=== PATIENT | female | born 1955 | race Caucasian/White ===

== ENCOUNTER 2022-10-15 13:36 | Emergency (ER) | payer MEDICARE, OTHER ==
[~2022-10-15] VITALS: Ht 162.6 cm; Wt 88.5 kg
[~2022-10-15 13:36] MED LIST: CLEOCIN HCL300 MG PO; NEURONTIN300 MG PO
--- OUTSIDE RECORDS SUMMARY | 2022-10-15 13:40 | XMS ---
PreManage Notification: SUSAN GOLDMAN Security Vp Digital Marketing Events No recent Security Events currently on file CRITERIA MET - [facility] - 2 Visits in 30 Days CARE PROVIDERS ALEXYS PASTOR [facility] Current PHONE: [phone] En has no Care Guidelines for this patient. E.Guerda VISIT COUNT (12 MO.) 2 [facility] Katelynn Arenas [address] [place] [address] TOTAL 4 NOTE: Visits indicate total known visits. ED/UCC VISIT TRACKING (12 MO.) 10/15/2022 13:38 MONAE Durbin TYPE: Emergency COMPLAINT: - LEG PAIN 09/29/2022 06:54 MONAE Durbin TYPE: Emergency COMPLAINT: - R LEG SWOLLEN/PAIN DIAGNOSES: - Allergy status to other antibiotic agents - Allergy status to sulfonamides - Cellulitis of right lower limb - Pain in right leg - Polyneuropathy, unspecified 07/28/2022 05:24 [facility] Katelynn NAIDU TYPE: Emergency DIAGNOSES: - Cellulitis of right lower limb - Chronic venous hypertension (idiopathic) with ulcer and inflammation of right lower extremity - bilateral leg swelling - Leg Swelling 05/11/2022 01:28 [facility] Katelynn NAIDU TYPE: Emergency DIAGNOSES: - Cellulitis of right lower limb - Cellulitis - Right leg inflamed /burning INPATIENT VISIT TRACKING (12 MO.) No inpatient visits to display in this time frame [id number]
[2022-10-15] MEDS ORDERED: AMOXICILLIN500 MG PO (14:36)
[2022-10-15] MEDS ORDERED: ELIQUIS5 MG PO (14:37)
[2022-10-15] MEDS ORDERED: PREDNISONE10 MG PO (16:59)
[2022-10-15] MEDS ORDERED: NEURONTIN300 MG PO (16:59)
[2022-10-15 17:30] VITALS: BP 178/99
== END 2022-10-15 17:34 | disposition home or self-care (01) ==
LOC: ED 13:36
DX: I83.018 Varicose veins of right lower extremity with ulcer other part of lower leg (principal); L97.819 Non-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 unspecified severity; Z88.1 Allergy status to other antibiotic agents; Z88.2 Allergy status to sulfonamides; Z79.899 Other long term (current) drug therapy; Z79.01 Long term (current) use of anticoagulants
CPT/HCPCS: 99283

== ENCOUNTER 2022-10-26 09:43 | Emergency (ER) | payer MEDICARE, OTHER ==
[~2022-10-26] VITALS: Ht 162.6 cm; Wt 90.0 kg
[~2022-10-26 09:43] MED LIST changes: +AMOXICILLIN500 MG PO; +ELIQUIS5 MG PO; +PREDNISONE10 MG PO
--- OUTSIDE RECORDS SUMMARY | 2022-10-26 09:52 | XMS ---
PreManage Notification: SUSAN GOLDMAN Security Supervisor Pleating Events No recent Security Events currently on file CRITERIA MET - [facility] - 2 Visits in 30 Days CARE PROVIDERS ALEXYS PASTOR [facility] Current PHONE: [phone] En has no Care Guidelines for this patient. E.Guerda VISIT COUNT (12 MO.) 2 [facility] Katelynn Arenas [address] [place] [address] TOTAL 5 NOTE: Visits indicate total known visits. ED/UCC VISIT TRACKING (12 MO.) 10/26/2022 09:45 MONAE Duran [place] TYPE: Emergency COMPLAINT: - R LEG PAIN/SWELLING 10/15/2022 13:38 MONAE Duran [place] TYPE: Emergency COMPLAINT: - WOUND CHECK DIAGNOSES: - Allergy status to other antibiotic agents - Allergy status to sulfonamides - terminal system operator (current) use of anticoagulants - Non-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 unspecified severity - Other marine oil terminal superintendent (current) drug therapy - Unspecified open wound, right lower leg, initial encounter - Varicose veins of right lower extremity with ulcer other part of lower leg 09/29/2022 06:54 MONAE Duran [place] TYPE: Emergency COMPLAINT: - R LEG SWOLLEN/PAIN DIAGNOSES: - Allergy status to other antibiotic agents - Allergy status to sulfonamides - Cellulitis of right lower limb - Pain in right leg - Polyneuropathy, unspecified 07/28/2022 05:24 [facility] Jeison NAIDU TYPE: Emergency DIAGNOSES: - Cellulitis of right lower limb - Chronic venous hypertension (idiopathic) with ulcer and inflammation of right lower extremity - bilateral leg swelling - Leg Swelling 05/11/2022 01:28 [facility] Jeison NAIDU TYPE: Emergency DIAGNOSES: - Cellulitis of right lower limb - Cellulitis - Right leg inflamed /burning INPATIENT VISIT TRACKING (12 MO.) No inpatient visits to display in this time frame [id number]
[2022-10-26] MEDS ORDERED: PREDNISONE10 MG PO (10:40)
[2022-10-26 11:06] VITALS: BP 144/89
== END 2022-10-26 11:07 | disposition home or self-care (01) ==
LOC: ED 09:43
DX: I87.2 Venous insufficiency (chronic) (peripheral) (principal); Z88.1 Allergy status to other antibiotic agents; Z88.2 Allergy status to sulfonamides; Z79.899 Other long term (current) drug therapy; Z79.01 Long term (current) use of anticoagulants
CPT/HCPCS: 99282

== ENCOUNTER 2022-11-05 11:56 | Emergency (ER) | payer MEDICARE, OTHER ==
[~2022-11-05] VITALS: Ht 162.6 cm; Wt 90.0 kg
--- OUTSIDE RECORDS SUMMARY | 2022-11-05 11:58 | XMS ---
PreManage Notification: SUSAN GOLDMAN Security Vice President Network Events No recent Security Events currently on file CRITERIA MET - 6 ED Visits in 6 Months - [facility] - 2 Visits in 30 Days CARE PROVIDERS ALEXYS PASTOR [facility] Current PHONE: [phone] En has no Care Guidelines for this patient. E.D. VISIT COUNT (12 MO.) [address] [place] [address] Katelynn Arenas TOTAL 6 NOTE: Visits indicate total known visits. ED/UCC VISIT TRACKING (12 MO.) 11/05/2022 11:57 MONAE Duran [place] TYPE: Emergency COMPLAINT: - R LEG PAIN 10/26/2022 09:45 MONAE Duran [place] TYPE: Emergency COMPLAINT: - R LEG PAIN/SWELLING DIAGNOSES: - Allergy status to other antibiotic agents - Allergy status to sulfonamides - intermediate manager (current) use of anticoagulants - Other technician terminal and repeater (current) drug therapy - Pain in right leg - Venous insufficiency (chronic) (peripheral) 10/15/2022 13:38 MONAE Duran [place] TYPE: Emergency COMPLAINT: - WOUND CHECK DIAGNOSES: - Allergy status to other antibiotic agents - Allergy status to sulfonamides - senior living (current) use of anticoagulants - Non-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 unspecified severity - Other shelter (current) drug therapy - Unspecified open wound, [...] right leg - Polyneuropathy, unspecified [facility] DIAGNOSES: - Cellulitis of right lower limb - Chronic venous hypertension (idiopathic) with ulcer and inflammation of right lower extremity - bilateral leg swelling - Leg Swelling 05/11/2022 01:28 [facility] DIAGNOSES: - Cellulitis of right lower limb - Cellulitis - Right leg inflamed /burning INPATIENT VISIT TRACKING (12 MO.) No inpatient visits to display in this time frame [id number]
[2022-11-05] MEDS ORDERED: PREDNISONE10 MG PO (14:07)
[2022-11-05 14:20] VITALS: BP 210/106
== END 2022-11-05 14:22 | disposition home or self-care (01) ==
LOC: ED 11:56
DX: L97.819 Non-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 unspecified severity (principal); Z88.1 Allergy status to other antibiotic agents; Z88.2 Allergy status to sulfonamides; Z79.52 Long term (current) use of systemic steroids; Z79.01 Long term (current) use of anticoagulants
CPT/HCPCS: 99282

== ENCOUNTER 2022-11-15 09:12 | Emergency (ER) | payer MEDICARE, OTHER ==
[~2022-11-15] VITALS: Ht 162.6 cm; Wt 89.8 kg
--- OUTSIDE RECORDS SUMMARY | 2022-11-15 09:16 | XMS ---
PreManage Notification: SUSAN GOLDMAN Security Black Oxide Operator Events No recent Security Events currently on file CRITERIA MET - 6 ED Visits in 6 Months - [facility] - 2 Visits in 30 Days CARE PROVIDERS ALEYXS PASTOR [facility] Current PHONE: [phone] En has no Care Guidelines for this patient. E.D. VISIT COUNT (12 MO.) [address] [place] [address] Katelynn Arenas TOTAL 7 NOTE: Visits indicate total known visits. 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 unspecified severity - Other specified soft tissue disorders 10/26/2022 09:45 MONAE Duran [place] TYPE: Emergency COMPLAINT: - R LEG PAIN/SWELLING DIAGNOSES: - Allergy status to other antibiotic agents - Allergy status to sulfonamides - prison (current) use of anticoagulants - Other long-term (current) drug therapy - Pain in right leg - Venous insufficiency (chronic) (peripheral) 10/15/2022 13:38 MONAE Durbin TYPE: Emergency COMPLAINT: - WOUND CHECK DIAGNOSES: - Allergy status to other antibiotic agents - Allergy status to sulfonamides - prison (current) use of anticoagulants - Non-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 unspecified severity - Other long-term (current) drug therapy - Unspecified open wound, right lower leg, initial encounter - Varicose veins of right lower extremity with ulcer other part of lower leg 09/29/2022 06:54 MONAE Durbin TYPE: Emergency COMPLAINT: - R LEG SWOLLEN/PAIN DIAGNOSES: - Allergy status to other antibiotic agents - Allergy status to sulfonamides - Cellulitis of right lower limb - Pain in right leg - Polyneuropathy, unspecified [facility] DIAGNOSES: - Cellulitis of right lower limb - Chronic venous hypertension (idiopathic) with ulcer and inflammation of right lower extremity - bilateral leg swelling - Leg Swelling 05/11/2022 01[facility] DIAGNOSES: - Cellulitis of right lower limb - Cellulitis - Right leg inflamed /burning INPATIENT VISIT TRACKING (12 MO.) No inpatient visits to display in this time frame [id number]
[2022-11-15 12:33] VITALS: BP 190/93
== END 2022-11-15 12:34 | disposition home or self-care (01) ==
LOC: ED 09:12
DX: L97.219 Non-pressure chronic ulcer of right calf with unspecified severity (principal); I10 Essential (primary) hypertension; Z79.01 Long term (current) use of anticoagulants; Z88.1 Allergy status to other antibiotic agents; Z88.2 Allergy status to sulfonamides; Z79.899 Other long term (current) drug therapy
CPT/HCPCS: 99283

== ENCOUNTER 2022-11-24 10:33 | Emergency (ER) | payer MEDICARE, OTHER ==
[~2022-11-24] VITALS: Ht 162.6 cm; Wt 90.0 kg
--- OUTSIDE RECORDS SUMMARY | 2022-11-24 10:36 | XMS ---
PreManage Notification: SUSAN GOLDMAN Security Pan Tank Worker Events No recent Security Events currently on file CRITERIA MET - 6 ED Visits in 6 Months - [facility] - 2 Visits in 30 Days CARE PROVIDERS ALEXYS PASTOR [facility] Current PHONE: [phone] En has no Care Guidelines for this patient. E.D. VISIT COUNT (12 MO.) [address] Katelynn Arenas TOTAL 8 NOTE: Visits indicate total known visits. ED/UCC VISIT TRACKING (12 MO.) 11/24/2022 10:34 MONAE Duran [place] TYPE: Emergency COMPLAINT: - MEDICATION REACTION, FACIAL NUMBNESS, MOUTH PAIN 11/15/2022 09:14 MONAE Duran [place] TYPE: Emergency COMPLAINT: - MEDICATION REFILL DIAGNOSES: - Allergy status to other antibiotic agents - Allergy status to sulfonamides - Essential (primary) hypertension - termite control technician (current) use of anticoagulants - 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 - Other fdc (current) drug therapy 11/05/2022 11:57 MONAE Duran [place] TYPE: Emergency COMPLAINT: - R LEG PAIN DIAGNOSES: - Allergy status to other antibiotic agents - Allergy status to sulfonamides - [facility] (current) use of anticoagulants - termite control technician (current) use of systemic steroids - Non-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 unspecified severity - Other specified soft tissue disorders 10/26/2022 09:45 MONAE Duran [place] TYPE: Emergency COMPLAINT: - R LEG PAIN/SWELLING DIAGNOSES: - Allergy status to other antibiotic agents - Allergy status to sulfonamides - termite control technician (current) use of anticoagulants - Other fdc (current) drug therapy - Pain in right leg - Venous insufficiency (chronic) (peripheral) 10/15/2022 13:38 MONAE Duran [place] TYPE: Emergency COMPLAINT: - WOUND CHECK DIAGNOSES: - Allergy status to other antibiotic agents - Allergy status to sulfonamides - termite control technician (current) use of anticoagulants - Non-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 unspecified severity - Other fdc (current) drug therapy - Unspecified open wound, [...] right leg - Polyneuropathy, unspecified [facility] DIAGNOSES: - Cellulitis of right lower limb - Chronic venous hypertension (idiopathic) with ulcer and inflammation of right lower extremity - bilateral leg swelling - Leg Swelling 05/11/2022 01:28 [facility] Jeison NAIDU TYPE: Emergency DIAGNOSES: - Cellulitis of right lower limb - Cellulitis - Right leg inflamed /burning INPATIENT VISIT TRACKING (12 MO.) No inpatient visits to display in this time frame [id number]
[2022-11-24 12:00] VITALS: BP 202/106
== END 2022-11-24 11:56 | disposition home or self-care (01) ==
LOC: ED 10:33
DX: R20.0 Anesthesia of skin (principal); T36.8X5A Adverse effect of other systemic antibiotics, initial encounter; X58.XXXA Exposure to other specified factors, initial encounter; Z88.1 Allergy status to other antibiotic agents; Z88.2 Allergy status to sulfonamides; Z79.01 Long term (current) use of anticoagulants
CPT/HCPCS: 99283

== ENCOUNTER 2023-01-28 11:23 | Emergency (ER) | payer MEDICARE, OTHER ==
[~2023-01-28] VITALS: Ht 162.6 cm; Wt 90.0 kg
[2023-01-28] MEDS ORDERED: CEPHALEXIN500 M1 PO (15:21)
[2023-01-28 15:40] VITALS: BP 209/104
[2023-01-28] MEDS ORDERED: DOXYCYCLINE HY100 MG PO (15:43)
== END 2023-01-28 15:40 | disposition home or self-care (01) ==
LOC: ED 11:23
DX: L97.219 Non-pressure chronic ulcer of right calf with unspecified severity (principal); Z88.1 Allergy status to other antibiotic agents; Z88.2 Allergy status to sulfonamides; Z79.899 Other long term (current) drug therapy
CPT/HCPCS: 99282

== ENCOUNTER 2023-02-17 22:03 | Emergency (ER) | payer MEDICARE, OTHER ==
[~2023-02-17] VITALS: Ht 162.6 cm; Wt 90.0 kg
[~2023-02-17 22:03] MED LIST changes: +CEPHALEXIN500 M1 PO; +DOXYCYCLINE HY100 MG PO
--- OUTSIDE RECORDS SUMMARY | 2023-02-17 22:06 | XMS ---
PreManage Notification: SUSAN GOLDMAN Security Spinner Iron Events No recent Security Events currently on file CRITERIA MET - 6 ED Visits in 6 Months - [facility] - 2 Visits in 30 Days CARE PROVIDERS ALEXYS PASTOR [facility] Current PHONE: [phone] En has no Care Guidelines for this patient. E.D. VISIT COUNT (12 MO.) [address] [place] [address] Katelynn Arenas (Jeison Mchugh) TOTAL 10 NOTE: Visits indicate total known visits. ED/UCC VISIT TRACKING (12 MO.) 02/17/2023 22:04 MONAE Duran [place] TYPE: Emergency COMPLAINT: - COLD SYMPTOMS 01/28/2023 11:25 MONAE Duran [place] TYPE: Emergency COMPLAINT: - R LEG WOUND DIAGNOSES: - Allergy status to other antibiotic agents - Allergy status to sulfonamides - 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 - Other fpc (current) drug therapy 11/24/2022 10:34 MONAE Duran [place] TYPE: Emergency COMPLAINT: - MEDICATION REACTION, FACIAL NUMBNESS, MOUTH PAIN DIAGNOSES: - Adverse effect of other systemic antibiotics, initial encounter - Allergy status to other antibiotic agents - Allergy status to sulfonamides - Anesthesia of skin - Exposure to other specified factors, initial encounter - intermodal truck driver (current) use of anticoagulants 11/15/2022 09:14 MONAE Duran [place] TYPE: Emergency COMPLAINT: - MEDICATION REFILL DIAGNOSES: - Allergy status to other antibiotic agents - Allergy status to sulfonamides - Essential (primary) hypertension - snf (current) use of anticoagulants - 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 - Other fpc (current) drug therapy 11/05/2022 11:57 MONAE Duran [place] TYPE: Emergency COMPLAINT: - R LEG PAIN DIAGNOSES: - Allergy status to other antibiotic agents - Allergy status to sulfonamides - intermodal truck driver (current) use of anticoagulants - snf (current) use of systemic steroids - Non-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 unspecified severity - Other specified soft tissue disorders 10/26/2022 09:45 MONAE Duran [place] TYPE: Emergency COMPLAINT: - R LEG PAIN/SWELLING DIAGNOSES: - Allergy status to other antibiotic agents - Allergy status to sulfonamides - intermodal truck driver (current) use of anticoagulants - Other fpc (current) drug therapy - Pain in right leg - Venous insufficiency (chronic) (peripheral) 10/15/2022 13:38 MONAE Duran [place] TYPE: Emergency COMPLAINT: - WOUND CHECK DIAGNOSES: - Allergy status to other antibiotic agents - Allergy status to sulfonamides - snf (current) use of anticoagulants - Non-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 unspecified severity - Other fpc (current) drug therapy - Unspecified open wound, [...] right leg - Polyneuropathy, unspecified 07/28/2022 05:24 [facility] Katelynn NAIDU (Jeison Mchugh) TYPE: Emergency DIAGNOSES: - Cellulitis of right lower limb - Chronic venous hypertension (idiopathic) with ulcer and inflammation of right lower extremity - bilateral leg swelling - Leg Swelling 05[facility]11/2022 [facility]Jeison [facility]chugh[facility]: Emergency DIAGNOSES: - Cellulitis of right lower limb - Cellulitis - Right leg inflamed /burning INPATIENT VISIT TRACKING (12 MO.) No inpatient visits to display in this time frame [id number]
[2023-02-17] MEDS ORDERED: GABAPENTIN300 MG PO (22:29)
[2023-02-17] MEDS ORDERED: MUPIROCIN22 GM TOP (22:29)
[2023-02-17 22:53] LABS: HEMOGLOBIN 14.5 g/dL (12.0-18.0); MCH 28.6 (27-36); RDW 14.9 (10.5-15.0)
[2023-02-17 22:56] LABS: BASOPHILS 0.5 % (0-2); EOSINOPHILS 2.9 % (0-6); HEMATOCRIT 44.4 % (35.0-50.0); LYMPHOCYTES 9.8 % (24-44); MCHC 32.6 g/dl (30-36); MCV 87.8 fl (81-99); MONOCYTES 6.3 % (0-12); NEUTROPHILS 80.5 % (39-80); PLATELET COUNT 211 K/uL (140-440); RBC 5.06 M/ul (4.3-5.7)
[2023-02-17 23:13] LABS: ALBUMIN 3.2 g/dL (3.4-5.0); ALBUMIN/GLOBULIN RATIO 0.89 (1.1-2.4); ANION GAP 11.4 (7-21); BILIRUBIN, TOTAL 1.2 ng/dL (0.2-1.0); BUN/CREATININE RATIO 15.85 (6.0-28.6); CALCIUM 8.9 mg/dL (8.5-10.1); CREATININE, SERUM 0.82 mg/dL (0.55-1.02); POTASSIUM 3.4 mmol/L (3.5-5.1); PROTEIN, TOTAL 6.8 g/dL (6.4-8.2)
[2023-02-17] MEDS ORDERED: LASIX20 MG PO (23:19)
[2023-02-17 23:53] VITALS: BP 00/00
== END 2023-02-18 | disposition home or self-care (01) ==
LOC: ED 22:03
PROVIDERS: Family Medicine
DX: I50.9 Heart failure, unspecified (principal); Z88.1 Allergy status to other antibiotic agents; Z88.2 Allergy status to sulfonamides; Z79.899 Other long term (current) drug therapy
CPT/HCPCS: 36415; 71045; 80053; 83880; 85025; 87502; 96374; 99283-25; A9270; J1940; U0002